=== PATIENT | female | born 2000 | race Caucasian/White ===

== ENCOUNTER 2021-10-23 23:43 | Emergency (ER) | payer BC ==
[2021-10-24] MEDS ORDERED: Ketorolac Tromethamine 30 MG/ML VIAL ONE ×2 (00:53→04:30)
[2021-10-24] MEDS ORDERED: HYDROcodone/Acetaminophen 5/325 mg Tablet ONE (01:34)
== END 2021-10-24 04:45 | disposition home or self-care (01) ==
LOC: CSHERS 23:43
DX: M54.6 Pain in thoracic spine (principal)
CPT/HCPCS: 72128; 96372; J1885